=== PATIENT | male | born 1955 | race Caucasian/White ===

== ENCOUNTER 2023-11-24 15:08 | Inpatient (IN) | payer MEDICARE ==
[~2023-11-24] VITALS: Ht 172.7 cm; Wt 102.5 kg
[2023-11-24] MEDS: cloNIDine HCL 0.1 MG TAB PO ONE ×2 (15:35→18:58)
[2023-11-24 15:42] LABS: Basophils # (auto) 0 10 ^3/uL (0-0.2); Basophils % (auto) 0.4 % (0.0-2.0); Eosinophils # (auto) 0 10 ^3/uL (0-0.8); Eosinophils % (auto) 0.5 % (0.0-7.0); Hemoglobin 19.7 g/dL (13.5-17.5); Lymphocytes # (auto) 1.7 10 ^3/uL (0.4-5.4); Lymphocytes % (auto) 20.5 % (10.0-50.0); Mean Corpuscular Hemoglobin 34.2 pg (28.0-32.0); Mean Corpuscular Hgb Conc. 33.4 g/dL (32.0-36.0); Mean Corpuscular Volume 102.3 fL (80.0-100.0); Monocytes # (auto) 0.5 10 ^3/uL (0-1.3); Monocytes % (auto) 5.8 % (0.0-12.0); Neutrophils # (auto) 6.1 10 ^3/uL (1.6-8.6); Neutrophils % (auto) 72.8 % (37.0-80.0); Nucleated Red Blood Cells % 0.1 %; Platelet Count (auto) 198 10^3/uL (140-450); Red Blood Cells 5.78 10^6/uL (4.5-5.90); Red Cell Distribution Width 15.4 % (11.8-14.3); White Blood Cell 8.3 10^3/uL (4.4-10.8)
[2023-11-24 15:43] LABS: Hematocrit 59.1 % (41.0-53.0)
[2023-11-24 15:53] LABS: Chloride 105 mmol/L (98-107); Potassium 4.2 mmol/L (3.5-5.1); Sodium 145 mmol/L (136-145)
[2023-11-24 15:54] LABS: Anion Gap 3 (5-15); Calcium 9.9 mg/dL (8.7-10.4); Carbon Dioxide 37 mmol/L (20-30)
[2023-11-24 15:59] LABS: BUN/Creatinine Ratio 12.9 (10.0-20.0); Blood Urea Nitrogen 18 mg/dL (9-23); Glucose 202 mg/dL (74-106)
[2023-11-24 16:44] VITALS: PULSE 77; RESP 15; O2SAT 98
[2023-11-24] MEDS: hydrALAZINE HCL 20 MG/ML VL IV ONE (18:58)
[2023-11-24] MEDS ORDERED: NITROGLYCERIN 0.4 MG SL TAB SL PRN (19:30)
[2023-11-24] MEDS ORDERED: MORPHINE SULFATE INJ 2 MG/ml SYRG IV PRN (19:30)
[2023-11-24] MEDS ORDERED: ACETAMINOPHEN 325 MG TAB PO PRN (19:30)
[2023-11-24] MEDS: HYDROcodone-ACET 5/325MG TAB PO PRN (21:12)
[2023-11-24] MEDS: LOSARTAN POTASSIUM 50 MG TAB PO SCH (22:05)
[2023-11-24] MEDS: hydrALAZINE HCL 20 MG/ML VL IV PRN (23:19)
[2023-11-25] VITALS (11 sets, daily range): BP systolic 125–188; BP diastolic 66–98; PULSE 62–95; RESP 16–22; TEMP 97.5–98.3; O2SAT 93–100
[2023-11-25] MEDS ORDERED: PNEUMOCOCCAL VACC POLYS 25 MCG/0.5 ML VIAL IM ONE (01:00)
[2023-11-25] MEDS: cloNIDine HCL 0.1 MG TAB PO PRN (03:05)
[2023-11-25 05:45] LABS: Basophils # (auto) 0 10 ^3/uL (0-0.2); Basophils % (auto) 0.5 % (0.0-2.0); Eosinophils # (auto) 0.1 10 ^3/uL (0-0.8); Eosinophils % (auto) 0.7 % (0.0-7.0); Hematocrit 54.7 % (41.0-53.0); Hemoglobin 18.8 g/dL (13.5-17.5); Lymphocytes # (auto) 1.5 10 ^3/uL (0.4-5.4); Lymphocytes % (auto) 19.3 % (10.0-50.0); Mean Corpuscular Hemoglobin 34.8 pg (28.0-32.0); Mean Corpuscular Hgb Conc. 34.4 g/dL (32.0-36.0); Monocytes # (auto) 0.7 10 ^3/uL (0-1.3); Neutrophils # (auto) 5.5 10 ^3/uL (1.6-8.6); White Blood Cell 7.8 10^3/uL (4.4-10.8)
[2023-11-25 05:50] LABS: Mean Corpuscular Volume 101.3 fL (80.0-100.0); Monocytes % (auto) 9.3 % (0.0-12.0); Neutrophils % (auto) 70.2 % (37.0-80.0); Nucleated Red Blood Cells % 0.1 %; Platelet Count (auto) 171 10^3/uL (140-450); Red Cell Distribution Width 14.9 % (11.8-14.3)
[2023-11-25 06:19] LABS: Alanine Aminotransferase 20 U/L (7-40); Alkaline Phosphatase 62 U/L (46-116); Anion Gap 6 (5-15); Aspartate Aminotransferase 19 U/L (13-40); BUN/Creatinine Ratio 8.7 (10.0-20.0); Bilirubin, Total 1.5 mg/dL (0.2-1.0); Blood Urea Nitrogen 9 mg/dL (9-23); Calcium 9.4 mg/dL (8.7-10.4); Carbon Dioxide 27 mmol/L (20-30); Chloride 106 mmol/L (98-107); Cholesterol 180 mg/dL (< 200); Glucose 137 mg/dL (74-106); HDL Cholesterol 43 mg/dL (40-59); LDL Cholesterol 122 mg/dL (< 100); Potassium 3.3 mmol/L (3.5-5.1); Sodium 139 mmol/L (136-145); Total Protein 6.5 g/dL (5.7-8.2); Triglycerides 123 mg/dL (< 150)
[2023-11-25] MEDS: FAMOTIDINE 20 MG TAB PO SCH (09:01)
[2023-11-25] MEDS: ENOXAPARIN SOD 40 MG/0.4 ML SYRINGE SC SCH (09:03)
[2023-11-25] MEDS: ONDANSETRON HCL 4 MG/2 ML VIAL IV PRN (09:45)
[2023-11-25] MEDS: MEPERIDINE HCL (25 MG/ML) 1ML VIAL IM ONE (09:45)
[2023-11-25] MEDS ORDERED: MEPERIDINE HCL (50 MG/ML) 1 ML VIAL IM ONE (11:30)
[2023-11-25] MEDS: MEPERIDINE HCL (50 MG/ML) 1 ML VIAL IV ONE (12:10)
[2023-11-25] MEDS: amLODIPine BESYLATE 5 MG TAB PO ONE ×2 (14:42→18:34)
[2023-11-25] MEDS ORDERED: amLODIPine BESYLATE 5 MG TAB PO SCH (18:15)
[2023-11-25] MEDS: CARVEDILOL 3.125 MG TAB PO SCH (21:28)
[2023-11-25] MEDS: ATORVASTATIN 20 MG TAB PO SCH (21:28)
[2023-11-26] VITALS (8 sets, daily range): BP systolic 120–178; BP diastolic 73–96; PULSE 60–75; RESP 16–20; TEMP 97.8–98.4; O2SAT 94–98
[2023-11-26 06:03] LABS: Basophils # (auto) 0 10 ^3/uL (0-0.2); Basophils % (auto) 0.5 % (0.0-2.0); Eosinophils # (auto) 0.1 10 ^3/uL (0-0.8); Eosinophils % (auto) 1.6 % (0.0-7.0); Hemoglobin 18.8 g/dL (13.5-17.5); Lymphocytes # (auto) 1.5 10 ^3/uL (0.4-5.4); Lymphocytes % (auto) 22.5 % (10.0-50.0); Mean Corpuscular Hemoglobin 35.4 pg (28.0-32.0); Mean Corpuscular Hgb Conc. 34.9 g/dL (32.0-36.0); Mean Corpuscular Volume 101.4 fL (80.0-100.0); Monocytes # (auto) 0.7 10 ^3/uL (0-1.3); Monocytes % (auto) 10.3 % (0.0-12.0); Neutrophils # (auto) 4.4 10 ^3/uL (1.6-8.6); Neutrophils % (auto) 65.1 % (37.0-80.0); Nucleated Red Blood Cells % 0.2 %; Platelet Count (auto) 183 10^3/uL (140-450); Red Blood Cells 5.33 10^6/uL (4.5-5.90); Red Cell Distribution Width 14.8 % (11.8-14.3); White Blood Cell 6.8 10^3/uL (4.4-10.8)
[2023-11-26 06:10] LABS: Anion Gap 2 (5-15); Calcium 9.6 mg/dL (8.7-10.4); Carbon Dioxide 31 mmol/L (20-30); Chloride 105 mmol/L (98-107); Potassium 3.2 mmol/L (3.5-5.1); Sodium 138 mmol/L (136-145)
[2023-11-26 06:16] LABS: BUN/Creatinine Ratio 7.8 (10.0-20.0); Blood Urea Nitrogen 8 mg/dL (9-23); Glucose 135 mg/dL (74-106)
[2023-11-26] MEDS ORDERED: amLODIPine BESYLATE 5 MG TAB PO SCH (10:00)
[2023-11-26] MEDS: amLODIPine BESYLATE 5 MG TAB PO SCH (11:03)
[2023-11-26] MEDS: CARVEDILOL 3.125 MG TAB PO ONE (15:34)
[2023-11-26] MEDS: hydroCHLOROthiazide 25 MG TAB PO ONE (15:35)
[2023-11-26] MEDS: POTASSIUM EFFERVESENT TAB 25 MEQ PO ONE (15:35)
[2023-11-26] MEDS: CARVEDILOL 12.5 MG TAB PO SCH (22:50)
[2023-11-26] MEDS: hydrALAZINE HCL 10 MG TAB PO SCH (22:52)
[2023-11-27] VITALS (8 sets, daily range): BP systolic 141–173; BP diastolic 70–102; PULSE 61–82; RESP 17–20; TEMP 98–98.5; O2SAT 94–97
[2023-11-27] MEDS: hydroCHLOROthiazide 25 MG TAB PO SCH (10:29)
[2023-11-27] MEDS: hydrALAZINE HCL 10 MG TAB PO SCH (15:03)
[2023-11-28] VITALS (8 sets, daily range): BP systolic 113–171; BP diastolic 67–99; PULSE 60–86; RESP 17–20; TEMP 97.7–98.2; O2SAT 92–99
[2023-11-28] MEDS: OXYCODONE W/ ACETAMINOPHEN 5/325MG TABLET PO PRN (16:50)
[2023-11-29] VITALS (7 sets, daily range): BP systolic 126–196; BP diastolic 77–93; PULSE 64–102; RESP 18–20; TEMP 98–98.6; O2SAT 95–98
[2023-11-29 12:26] LABS: Basophils # (auto) 0 10 ^3/uL (0-0.2); Basophils % (auto) 0.5 % (0.0-2.0); Eosinophils # (auto) 0.2 10 ^3/uL (0-0.8); Eosinophils % (auto) 1.9 % (0.0-7.0); Hemoglobin 20.1 g/dL (13.5-17.5); Lymphocytes # (auto) 1.7 10 ^3/uL (0.4-5.4); Lymphocytes % (auto) 19.8 % (10.0-50.0); Mean Corpuscular Hemoglobin 35.1 pg (28.0-32.0); Mean Corpuscular Hgb Conc. 34.3 g/dL (32.0-36.0); Mean Corpuscular Volume 102.5 fL (80.0-100.0); Monocytes # (auto) 1.1 10 ^3/uL (0-1.3); Monocytes % (auto) 12.4 % (0.0-12.0); Neutrophils # (auto) 5.6 10 ^3/uL (1.6-8.6); Neutrophils % (auto) 65.4 % (37.0-80.0); Nucleated Red Blood Cells % 0.5 %; Platelet Count (auto) 191 10^3/uL (140-450); Red Blood Cells 5.72 10^6/uL (4.5-5.90); Red Cell Distribution Width 14.8 % (11.8-14.3); White Blood Cell 8.6 10^3/uL (4.4-10.8)
[2023-11-29 12:27] LABS: Hematocrit 58.6 % (41.0-53.0)
[2023-11-29 12:48] LABS: Alanine Aminotransferase 47 U/L (7-40); Albumin 4.6 g/dL (3.2-4.8); Alkaline Phosphatase 63 U/L (46-116); Anion Gap 5 (5-15); Aspartate Aminotransferase 40 U/L (13-40); BUN/Creatinine Ratio 13.7 (10.0-20.0); Bilirubin, Total 1.5 mg/dL (0.2-1.0); Blood Urea Nitrogen 26 mg/dL (9-23); Calcium 10.1 mg/dL (8.7-10.4); Carbon Dioxide 33 mmol/L (20-30); Chloride 99 mmol/L (98-107); Glucose 136 mg/dL (74-106); Potassium 4.5 mmol/L (3.5-5.1); Sodium 137 mmol/L (136-145); Total Protein 7.7 g/dL (5.7-8.2)
[2023-11-29] MEDS: ADENOSINE 88 MG in GIVE UN-DILUTED 0 ML IV ONE (13:10)
[2023-11-29] MEDS: hydrALAZINE HCL 25 MG TAB PO ONE (15:45)
[2023-11-29] MEDS: hydrALAZINE HCL 25 MG TAB PO SCH (21:28)
[2023-11-30 01:00] VITALS: BP 123/70; PULSE 80; RESP 20; TEMP 97.5; O2SAT 95
[2023-11-30 05:00] VITALS: BP 133/63; PULSE 96; RESP 20; TEMP 97.8; O2SAT 97
[2023-11-30 08:00] VITALS: PULSE 76; PULSE 96; RESP 18; O2SAT 96
[2023-11-30 08:39] VITALS: BP 135/80; PULSE 96; RESP 18; TEMP 97.8; O2SAT 96
[2023-11-30 13:00] VITALS: BP 107/76; PULSE 74; RESP 18; TEMP 97.6; O2SAT 95
[2023-11-30] MEDS ORDERED: ATOR20TA50 PO (14:37)
[2023-11-30] MEDS ORDERED: HYDR25TA87 PO (14:37)
[2023-11-30] MEDS ORDERED: LOSA-534 PO (14:37)
[2023-11-30] MEDS ORDERED: HYDR25TA5 PO (14:37)
[2023-11-30] MEDS ORDERED: CARV-216 PO (14:37)
[2023-11-30] MEDS ORDERED: AML5T PO (14:37)
[2023-11-30 15:13] VITALS: BP 107/76; PULSE 74; RESP 18; TEMP 97.7; O2SAT 95
== END 2023-11-30 15:45 | disposition home or self-care (01) | DRG 305 ==
LOC: ER 15:08 → TELE-E-ADS 19:31 → TELE 19:31 → TELE-E-ADS 23:52
PROVIDERS: ADMIT Nurse Practitioner; ATTEND Nurse Practitioner
DX: I16.1 Hypertensive emergency (principal); I47.10 Supraventricular tachycardia, unspecified; D75.839 Thrombocytosis, unspecified; E66.01 Morbid (severe) obesity due to excess calories; E78.5 Hyperlipidemia, unspecified; I10 Essential (primary) hypertension; M54.50 Low back pain, unspecified; E87.6 Hypokalemia; Q07.00 Arnold-Chiari syndrome without spina bifida or hydrocephalus; Z87.891 Personal history of nicotine dependence; Z68.34 Body mass index [BMI] 34.0-34.9, adult
CPT/HCPCS: 36415; 70450; 71045; 78452; 80048; 80053; 80061; 83036; 83880; 84443; 84484; 85025; 93005; 93017; 93306; 93976; 99291; G0378; J0153; J2405